=== PATIENT | female | born 1980 | race Caucasian/White ===

== ENCOUNTER 2021-05-20 16:23 | Outpatient (REF) | payer MEDICAID, SELFPAY ==
[2021-05-20 20:07] LABS: Hemoglobin A1C 5.4 % (<5.7)
[2021-05-20 20:17] LABS: TSH (W/Ref FT4) 0.72 uIU/mL (0.36-3.74)
== END 2021-05-20 16:24 | disposition home or self-care (01) ==
LOC: NCHCN 16:23
PROVIDERS: PCP Family Medicine; Visit Provider Nurse Practitioner Family
DX: E66.9 Obesity, unspecified (principal); F41.9 Anxiety disorder, unspecified; G47.9 Sleep disorder, unspecified; Z00.00 Encounter for general adult medical examination without abnormal findings
CPT/HCPCS: 83036; 84443